=== PATIENT | female | born 1985 | race Caucasian/White ===

== ENCOUNTER 2018-04-19 14:57 | Emergency (ER) | payer MEDICAID ==
[~2018-04-19] VITALS: Ht 167.6 cm; Wt 104.3 kg
[2018-04-19] MEDS ORDERED: IBUPROFEN 800800 M1 PO (15:17)
[2018-04-19] MEDS ORDERED: WELLBUTRIN XL300 MG PO (15:18)
[2018-04-19] MEDS ORDERED: [UNRECOGNIZED DRUG - OTHER] PO (15:19)
[2018-04-19] MEDS ORDERED: XANAX1 MG PO (15:20)
[2018-04-19] MEDS ORDERED: ACETAMINOPHEN-1 EAC1 PO (15:27)
[2018-04-19] MEDS ORDERED: AMOXICILLIN 50500 MG PO (15:27)
[2018-04-19 16:10] VITALS: BP 152/99
== END 2018-04-19 16:10 | disposition home or self-care (01) ==
LOC: M.ERS 14:57
DX: K08.89 Other specified disorders of teeth and supporting structures (principal); M25.561 Pain in right knee; W19.XXXA Unspecified fall, initial encounter; Y93.89 Activity, other specified; Y92.89 Other specified places as the place of occurrence of the external cause; Y99.8 Other external cause status